=== PATIENT | female | born 1965 | race Caucasian/White ===

== ENCOUNTER 2017-03-30 15:25 | Emergency (ER) | payer OTHER ==
[~2017-03-30 15:25] MED LIST: 'PARAFON FORTE500 M1 PO; ACYCLOVIR400 MG PO; ANTIVERT25 MG PO; AUGMENTIN 875 M1 TAB PO; AUGMENTIN 875875 MG PO; BACTRIM DS 8001 TA1 PO; BIAXIN FILMTAB250 MG PO; CIPROFLOXACIN500 MG PO; CLARITIN10 MG PO; HYDROCODONE BIT1 T11 PO; MOTRIN800 MG PO; NAPROSYN500 MG PO; PREDNICOT20 MG PO; ROBITUSSIN AC 110 ML PO; TESSALON PERLE100 MG PO; VICODIN 5-3001 EACH PO; VICODIN 5/500 505 MG PO; VICODIN 500 MG-1 TAB PO; VICODIN ES 7501 TAB PO; ZANTAC150 MG PO; ZITHROMAX Z PA250 MG PO; ZOFRAN4 MG PO
[2017-03-30] MEDS ORDERED: VALACYCLOVIR H500 MG PO (15:50)
[2017-03-30] MEDS ORDERED: LIDEX 0.05% CRE15 GM T (15:50)
== END 2017-03-30 15:58 | disposition home or self-care (01) ==
LOC: ED 15:25
DX: R21 Rash and other nonspecific skin eruption (principal); Z98.51 Tubal ligation status

== ENCOUNTER 2017-07-15 15:01 | Emergency (ER) | payer OTHER ==
[~2017-07-15] VITALS: Ht 165.1 cm; Wt 65.8 kg
[~2017-07-15 15:01] MED LIST changes: +LIDEX 0.05% CRE15 GM T; +VALACYCLOVIR H500 MG PO
[2017-07-15] MEDS ORDERED: CEPHALEXIN500 M1 PO (16:32)
== END 2017-07-15 16:37 | disposition home or self-care (01) ==
LOC: ED 15:01
DX: M79.89 Other specified soft tissue disorders (principal); M79.645 Pain in left finger(s); Z98.51 Tubal ligation status; W19.XXXA Unspecified fall, initial encounter; Y93.89 Activity, other specified; Y92.89 Other specified places as the place of occurrence of the external cause; Y99.9 Unspecified external cause status

== ENCOUNTER 2017-09-09 12:21 | Emergency (ER) | payer SELFPAY ==
[~2017-09-09] VITALS: Ht 165.1 cm; Wt 65.8 kg
[~2017-09-09 12:21] MED LIST changes: +CEPHALEXIN500 M1 PO
[2017-09-09] MEDS ORDERED: NAPROSYN500 MG PO (13:35)
== END 2017-09-09 14:03 | disposition home or self-care (01) ==
LOC: ED 12:21
DX: M25.561 Pain in right knee (principal)

== ENCOUNTER 2018-10-01 14:02 | Emergency (ER) | payer SELFPAY ==
[~2018-10-01] VITALS: Ht 165.1 cm; Wt 65.8 kg
--- NOTE | ~2018-10-01 | EKG ---
[place], [place] ELECTROCARDIOGRAM REPORT NAME: ROZINA CASTILLO UNIT #: [id number] ROOM: DOCTOR: EPIPHANY DRAFT REPORT BIRTHDATE: [birth year] [facility] Test Date: 2018-10-01 Test Time: 16:25:04 Pat Name: ROZINA CASTILLO Department: Room: Gender: F Undergraduate Intern: SHANE : 1965 Requested By: WAN JOHNSTON DNP Order Number: [id number] Reading MD: Obinna Morris MD Measurements Intervals [place] Rate: 61 P: -6 VT: 155 QRS: 14 QRSD: 101 T: 2 QT: 432 QTc: 435 Interpretive Statements Sinus rhythm Low voltage, precordial leads RSR' in V1 or V2, probably normal variant Borderline T abnormalities, diffuse leads Electronically Signed On 10-02-2018 12:26:04 PST by Obinna Morris MD CM:EKGRPT:ELECTROCARDIOGRAM REPORT 1625 1226 WAN JOHNSTON DNP EPIPHANY DRAFT REPORT WAN JOHNSTON DNP
[2018-10-01 15:14] LABS: BILIRUBIN NEGATIVE (NEGATIVE); BLOOD NEGATIVE (NEGATIVE); CLARITY CLEAR (CLEAR); COLOR YELLOW (YELLOW); GLUCOSE NEGATIVE (NEGATIVE); KETONE NEGATIVE (NEGATIVE); LEUKO ESTERASE NEGATIVE (NEGATIVE); NITRITE NEGATIVE (NEGATIVE); PH 5.5 (5.0-9.0); SPECIFIC GRAVITY <= 1.005 (1.005-1.030); UROBILINOGEN 0.2 E.U./dl (0.2-1.0)
[2018-10-01 15:25] LABS: BACTERIA TRACE; RBC 0-2 rbc/hpf (0-2); WBC 0-2 wbc/hpf (0-5)
[2018-10-01 15:26] LABS: BASO # 0.1 10*3/uL (0.0-0.1); BASO % 0.8 % (0.0-1.0); EOS # 0.1 10*3/uL (0.0-0.4); EOS % 1.4 % (1.0-4.0); HEMATOCRIT 41.4 % (37.0-47.0); LYMPH # 2.3 10*3/uL (1.3-4.4); LYMPH % 32.2 % (27.0-41.0); MEAN CELL VOLUME 92.6 fl (81.0-99.0); MEAN CORPUSCULAR HGB 31.3 pg (27.0-31.0); MEAN CORPUSCULAR HGB CONC 33.8 g/dl (33.0-37.0); MEAN PLATELET VOLUME 9.3 fl (9.6-12.3); MONO # 0.6 10*3/uL (0.1-1.0); MONO % 7.9 % (3.0-9.0); NEUT # 4.1 10*3/uL (2.3-7.9); NEUT % 57.4 % (47.0-73.0); PLATELET COUNT AUTOMATED 181 10*3/uL (130-400); RED BLOOD COUNT 4.47 10*6/uL (4.10-5.10); RED CELL DISTRI WIDTH 12.3 % (0-14.5); WHITE BLOOD COUNT 7.1 10*3/uL (4.8-10.8)
[2018-10-01 15:43] LABS: ALKALINE PHOSPHATASE 49 U/L (45-117); BUN 12 mg/dl (7-24); CHLORIDE 105 mmol/L (98-107); CREATININE 0.77 mg/dL (0.55-1.02); LIPASE 102 U/L (73-393); POTASSIUM 4.1 mmol/L (3.5-5.1); SGOT/AST 32 IU/L (3-35); SGPT/ALT 49 U/L (12-78); SODIUM 138 mmol/L (136-145); TOTAL PROTEIN 7.5 gm/dL (6.4-8.2)
[2018-10-01] MEDS ORDERED: PREDNISONE50 MG PO (17:30)
[2018-10-01] MEDS ORDERED: CYCLOBENZAPRINE10 MG PO (17:30)
[2018-10-01] MEDS ORDERED: NAPROSYN500 MG PO (17:30)
== END 2018-10-01 17:40 | disposition home or self-care (01) ==
LOC: ED 14:02
PROVIDERS: Nurse Practitioner Family
DX: S39.012A Strain of muscle, fascia and tendon of lower back, initial encounter (principal); R35.0 Frequency of micturition; R42 Dizziness and giddiness; X58.XXXA Exposure to other specified factors, initial encounter; Y93.89 Activity, other specified; Y92.89 Other specified places as the place of occurrence of the external cause; Y99.8 Other external cause status

== ENCOUNTER 2019-11-06 15:55 | Emergency (ER) | payer OTHER ==
[~2019-11-06] VITALS: Ht 165.1 cm; Wt 61.2 kg
[~2019-11-06 15:55] MED LIST changes: +CYCLOBENZAPRINE10 MG PO; +PREDNISONE50 MG PO
== END 2019-11-06 18:36 | disposition home or self-care (01) ==
LOC: ED 15:55
DX: M25.461 Effusion, right knee (principal)

== ENCOUNTER → 2020-02-23 | Outpatient (CLI) | payer OTHER ==
[~2020-02-23] MED LIST changes: +PREDNISONE20 M1 PO
== END | disposition home or self-care (01) ==
LOC: US 01-27 14:30
DX: R10.31 Right lower quadrant pain (principal)

== ENCOUNTER 2020-03-05 09:56 | Emergency (ER) | payer OTHER ==
[~2020-03-05] VITALS: Ht 165.1 cm; Wt 59.0 kg
[~2020-03-05 09:56] MED LIST changes: -PREDNISONE20 M1 PO
[2020-03-05] MEDS ORDERED: PREDNISONE20 M1 PO (10:38)
== END 2020-03-05 10:49 | disposition home or self-care (01) ==
LOC: ED 09:56
DX: R21 Rash and other nonspecific skin eruption (principal); L29.9 Pruritus, unspecified; Z98.51 Tubal ligation status; Z90.49 Acquired absence of other specified parts of digestive tract

== ENCOUNTER → 2020-09-09 | Outpatient (CLI) | payer OTHER ==
[~2020-09-09] MED LIST changes: +PREDNISONE20 M1 PO
== END | disposition home or self-care (01) ==
LOC: US 10:00
PROVIDERS: ATTEND Nurse Practitioner Family
DX: R74.8 Abnormal levels of other serum enzymes (principal)

== ENCOUNTER → 2020-12-16 | Outpatient (CLI) | payer OTHER | END | disposition home or self-care (01) | LOC: COVID19 15:42 → LAB 15:42 | PROVIDERS: ATTEND Nurse Practitioner Family | DX: Z01.818 Encounter for other preprocedural examination (principal); K70.30 Alcoholic cirrhosis of liver without ascites; Z20.822 Contact with and (suspected) exposure to COVID-19 ==

== ENCOUNTER → 2020-12-26 | Outpatient (CLI) | payer OTHER | END | disposition home or self-care (01) | LOC: COVID19 14:22 | PROVIDERS: ATTEND Nurse Practitioner Family | DX: Z01.812 Encounter for preprocedural laboratory examination (principal); Z20.822 Contact with and (suspected) exposure to COVID-19 ==

== ENCOUNTER → 2022-01-22 | Outpatient (CLI) | payer OTHER | END | disposition home or self-care (01) | LOC: RAD 13:32 | PROVIDERS: ATTEND Nurse Practitioner Family | DX: J34.89 Other specified disorders of nose and nasal sinuses (principal) ==

== ENCOUNTER 2023-06-13 08:17 | Emergency (ER) | payer OTHER ==
[~2023-06-13] VITALS: Wt 77.1 kg
[2023-06-13] MEDS ORDERED: ASPIRIN CHILDRE81 MG PO (08:24)
[2023-06-13 08:58] LABS: BASO # 0.1 10*3/uL (0.0-0.1); BASO % 1.2 % (0.0-1.0); EOS # 0.2 10*3/uL (0.0-0.4); EOS % 3.5 % (1.0-4.0); HEMATOCRIT 43.4 % (37.0-47.0); LYMPH % 40.1 % (27.0-41.0); MEAN CELL VOLUME 89.3 fl (81.0-99.0); MEAN CORPUSCULAR HGB 31.7 pg (27.0-31.0); MEAN CORPUSCULAR HGB CONC 35.5 g/dl (33.0-37.0); MEAN PLATELET VOLUME 9.8 fl (9.6-12.3); MONO # 0.5 10*3/uL (0.1-1.0); MONO % 9.8 % (3.0-9.0); NEUT # 2.2 10*3/uL (2.3-7.9); NEUT % 45.2 % (47.0-73.0); PLATELET COUNT AUTOMATED 162 10*3/uL (130-400); RED BLOOD COUNT 4.86 10*6/uL (4.10-5.10); RED CELL DISTRI WIDTH 12.6 % (0-14.5); WHITE BLOOD COUNT 4.9 10*3/uL (4.8-10.8)
[2023-06-13 09:12] LABS: ACT PARTIAL THROMBO TIME 28.8 SECONDS (20.0-32.1)
[2023-06-13 09:27] LABS: ALKALINE PHOSPHATASE 84 U/L (46-116); BUN 11 mg/dl (9-23); CHLORIDE 109 mmol/L (98-107); LIPASE 47 U/L (12-53); SGPT/ALT 60 U/L (10-49); TOTAL PROTEIN 7.6 gm/dL (6.0-8.0)
[2023-06-13] MEDS ORDERED: LEVOFLOXACIN750 M2 PO (11:36)
== END 2023-06-13 11:47 | disposition home or self-care (01) ==
LOC: ED 08:17
PROVIDERS: Emergency Medicine
DX: J01.90 Acute sinusitis, unspecified (principal); I88.9 Nonspecific lymphadenitis, unspecified; Z98.890 Other specified postprocedural states; Z90.49 Acquired absence of other specified parts of digestive tract

== ENCOUNTER → 2023-12-27 | Outpatient (CLI) | payer OTHER ==
[~2023-12-27] MED LIST changes: +ASPIRIN CHILDRE81 MG PO; +LEVOFLOXACIN750 M2 PO
[2023-12-27 10:35] LABS: BASO # 0.1 10*3/uL (0.0-0.1); EOS # 0.2 10*3/uL (0.0-0.4); EOS % 3.6 % (1.0-4.0); HEMATOCRIT 45.1 % (37.0-47.0); LYMPH % 40.2 % (27.0-41.0); MEAN CELL VOLUME 90.6 fl (81.0-99.0); MEAN CORPUSCULAR HGB 29.3 pg (27.0-31.0); MEAN CORPUSCULAR HGB CONC 32.4 g/dl (33.0-37.0); MEAN PLATELET VOLUME 9.6 fl (9.6-12.3); MONO # 0.4 10*3/uL (0.1-1.0); NEUT # 2.4 10*3/uL (2.3-7.9); PLATELET COUNT AUTOMATED 171 10*3/uL (130-400); RED BLOOD COUNT 4.98 10*6/uL (4.10-5.10); RED CELL DISTRI WIDTH 11.9 % (0-14.5)
[2023-12-27 10:57] LABS: ALKALINE PHOSPHATASE 72 U/L (46-116); BUN 15 mg/dl (9-23); CHLORIDE 106 mmol/L (98-107); SGPT/ALT 208 U/L (5-49); TOTAL PROTEIN 7.8 gm/dL (6.0-8.0)
[2023-12-28 04:06] LABS: AFP TUMOR MARKER 2.1 ng/mL (0.0-9.2)
[2023-12-28 05:06] LABS: ALPHA-1-ANTITRYPSIN, SERUM 151 mg/dL (101-187)
[2023-12-28 07:06] LABS: HEPATITIS B SURFACE AB Non Reactive (.); HEPATITIS B SURFACE AG Positive (Negative); HEPATITIS Be ANTIGEN Negative (Negative)
[2023-12-28 14:07] LABS: ANTI-SMOOTH MUSCLE ANTIBODY 13 Units (0-19)
[2023-12-28 20:06] LABS: HBV 4430000 IU/mL (.); LOG10 HBV 6.646 (.)
== END | disposition home or self-care (01) ==
LOC: LAB 09:59
PROVIDERS: ATTEND Nurse Practitioner Family
DX: R79.89 Other specified abnormal findings of blood chemistry (principal); K76.89 Other specified diseases of liver; B19.10 Unspecified viral hepatitis B without hepatic coma; R79.0 Abnormal level of blood mineral

== ENCOUNTER → 2024-01-15 | Outpatient (CLI) | payer OTHER | END | disposition home or self-care (01) | LOC: LAB 12:18 | PROVIDERS: ATTEND Nurse Practitioner Family | DX: A04.8 Other specified bacterial intestinal infections (principal); B96.81 Helicobacter pylori [H. pylori] as the cause of diseases classified elsewhere ==

== ENCOUNTER → 2024-02-17 | Outpatient (CLI) | payer OTHER ==
[2024-02-17 11:48] LABS: BASO # 0.1 10*3/uL (0.0-0.1); BASO % 1.1 % (0.0-1.0); EOS # 0.2 10*3/uL (0.0-0.4); EOS % 4.6 % (1.0-4.0); HEMATOCRIT 42.1 % (37.0-47.0); LYMPH # 1.8 10*3/uL (1.3-4.4); LYMPH % 41.5 % (27.0-41.0); MEAN CELL VOLUME 90.5 fl (81.0-99.0); MEAN CORPUSCULAR HGB 29.7 pg (27.0-31.0); MEAN CORPUSCULAR HGB CONC 32.8 g/dl (33.0-37.0); MEAN PLATELET VOLUME 10.1 fl (9.6-12.3); MONO # 0.4 10*3/uL (0.1-1.0); MONO % 9.3 % (3.0-9.0); NEUT # 1.9 10*3/uL (2.3-7.9); NEUT % 43.3 % (47.0-73.0); PLATELET COUNT AUTOMATED 152 10*3/uL (130-400); RED BLOOD COUNT 4.65 10*6/uL (4.10-5.10); RED CELL DISTRI WIDTH 12.5 % (0-14.5); WHITE BLOOD COUNT 4.4 10*3/uL (4.8-10.8)
[2024-02-17 12:23] LABS: ALKALINE PHOSPHATASE 90 U/L (46-116); BUN 14 mg/dl (9-23); CHLORIDE 106 mmol/L (98-107); POTASSIUM 3.9 mmol/L (3.4-5.1); SGPT/ALT 122 U/L (5-49); TOTAL PROTEIN 7.6 gm/dL (6.0-8.0)
== END | disposition home or self-care (01) ==
LOC: LAB 11:31
PROVIDERS: ATTEND Nurse Practitioner Family
DX: B16.0 Acute hepatitis B with delta-agent with hepatic coma (principal); R94.5 Abnormal results of liver function studies; K76.89 Other specified diseases of liver

== ENCOUNTER → 2024-05-04 | Outpatient (CLI) | payer OTHER | END | disposition home or self-care (01) | LOC: RAD 10:44 | PROVIDERS: ATTEND Nurse Practitioner | DX: M17.11 Unilateral primary osteoarthritis, right knee (principal); M25.461 Effusion, right knee; M76.891 Other specified enthesopathies of right lower limb, excluding foot ==

== ENCOUNTER → 2024-06-25 | Outpatient (CLI) | payer OTHER ==
[~2024-06-25] MED LIST changes: +VITAMIN E PO
== END | disposition home or self-care (01) ==
LOC: US 12:29
PROVIDERS: ATTEND Urology
DX: N28.89 Other specified disorders of kidney and ureter (principal); N32.89 Other specified disorders of bladder; N39.0 Urinary tract infection, site not specified; Z96.0 Presence of urogenital implants

== ENCOUNTER 2024-06-30 19:04 | Emergency (ER) | payer OTHER ==
[~2024-06-30] VITALS: Ht 165.1 cm; Wt 70.3 kg
[~2024-06-30 19:04] MED LIST changes: -VITAMIN E PO
[2024-06-30] MEDS ORDERED: VITAMIN E PO (19:46)
== END 2024-06-30 20:05 | disposition home or self-care (01) ==
LOC: ED 19:04
DX: U07.1 COVID-19 (principal); Z98.890 Other specified postprocedural states; Z98.51 Tubal ligation status; Z90.49 Acquired absence of other specified parts of digestive tract

== ENCOUNTER → 2025-01-19 | Outpatient (CLI) | payer OTHER ==
[~2025-01-19] MED LIST changes: +VITAMIN E PO
== END | disposition home or self-care (01) ==
LOC: RAD 15:24
PROVIDERS: ATTEND Nurse Practitioner
DX: M17.11 Unilateral primary osteoarthritis, right knee (principal); M25.561 Pain in right knee